=== PATIENT | male | born 1955 | race Caucasian/White ===

== ENCOUNTER 2017-11-13 12:23 | Emergency (ER) | payer OTHER ==
[~2017-11-13] VITALS: Ht 177.8 cm; Wt 83.9 kg
[~2017-11-13 12:23] MED LIST: ALLERGY10 M1 PO; B COMPLEX-VITA1 EACH PO; BACTRIM DS TAB1 EACH PO; MULTIVITAMINS1 EAC7
[2017-11-13] MEDS ORDERED: LISINOPRIL10 MG PO (12:30)
[2017-11-13 13:07] VITALS: BP 147/72
== END 2017-11-13 13:07 | disposition home or self-care (01) ==
LOC: M.ERS 12:23
DX: S61.211A Laceration without foreign body of left index finger without damage to nail, initial encounter (principal); I10 Essential (primary) hypertension; W26.8XXA Contact with other sharp object(s), not elsewhere classified, initial encounter; Y93.89 Activity, other specified; Y92.89 Other specified places as the place of occurrence of the external cause; Y99.8 Other external cause status